=== PATIENT | male | born 1975 | race American Indian/Alaskan Native ===

== ENCOUNTER 2019-07-14 10:48 | Emergency (ER) | payer OTHER ==
[2019-07-14 10:56] VITALS: BP 129/80
--- NOTE | 2019-07-14 13:37 | Emergency Department Report ---
ED General Adult HPI - General Chief complaint: Abdominal Pain Stated complaint: GI PAIN/LEG SPASM Time Seen by Provider: 07/14/19 12:04 Source: patient Mode of arrival: Ambulatory Limitations: No Limitations - History of Present Illness Initial comments: This is a 43-year-old male who presents to the ED complaining of left thigh muscle spasm that is been worsening past 2 days. Patient states he has a history of internal hemorrhoids and had it removed 3 years ago. Patient states for some time now for about 2 days he has been having some blood from his stool and when he wipes. Patient states he has not noted any external hemorrhoids. Patient states that since his surgery he has had have a bowel movement in awkward position which is causing him to have 5 muscle spasms. Patient states he was going to work today when he got a spasm. Patient states that last time he saw a GI doctor was in [place] where he used to reside. Patient had endoscopy and colonoscopy done a year ago. Patient is recently moved from [place] to the [facility]. - Related Data Previous Rx's Medication Instructions Recorded Last Taken Type tiZANidine [Zanaflex 4mg TAB] 4 mg PO BID #30 tablet 07/14/19 Unknown Rx Allergies Allergy/AdvReac Type Severity Reaction Status Date / Time Sulfa (Sulfonamide Allergy Unknown Verified 07/14/19 10:53 Antibiotics) ED Review of Systems ROS: Stated complaint: GI PAIN/LEG SPASM Other details as noted in HPI Comment: All other systems reviewed and negative ED Past Medical Hx - Past Medical History Previous Medical History?: No - Surgical History Past Surgical History?: Yes Additional Surgical History: rectal surgery - Social History Smoking Status: Current Every Day Smoker Substance Use Type: Alcohol - Medications Home Medications: Home Medications Medication Instructions Recorded Confirmed Last Taken Type tiZANidine [Zanaflex 4mg TAB] 4 mg PO BID #30 tablet 07/14/19 Unknown Rx ED Physical Exam - General Limitations: No Limitations General appearance: alert, in no apparent distress - Head Head exam: Present: atraumatic, normocephalic - Eye Eye exam: Present: normal appearance - ENT ENT exam: Present: mucous membranes moist - Neck Neck exam: Present: normal inspection - Respiratory Respiratory exam: Present: normal lung sounds bilaterally. Absent: respiratory distress - Cardiovascular Cardiovascular Exam: Present: regular rate, normal rhythm. Absent: systolic murmur, diastolic murmur, rubs, gallop - GI/Abdominal GI/Abdominal exam: Present: soft, normal bowel sounds - Rectal Rectal exam: Present: normal inspection, normal rectal tone, heme (-) stool. Absent: fecal impaction, hemorrhoids - Extremities Exam Extremities exam: Present: normal inspection - Back Exam Back exam: Present: normal inspection - Neurological Exam Neurological exam: Present: alert, oriented X3 - Psychiatric Psychiatric exam: Present: normal affect, normal mood - Skin Skin exam: Present: warm, dry, intact, normal color. Absent: rash ED Course Vital Signs 07/14/19 10:55 Temperature 98.2 F Pulse Rate 84 Respiratory 18 Rate Blood Pressure 129/80 O2 Sat by Pulse 97 Oximetry ED Medical Decision Making - Medical Decision Making This 44-year-old male who presented for thigh muscle spasm and rectal pain with bowel movement I discussed with patient that he will need to follow-up with their sporting goods sales associate for continued management of his GI surgery. I discussed with patient In the meantime he can follow-up with primary care physician for management of his spasms. Patient had no acute distress in the ED he was sitting quietly in the ED room. Patient states he understand instructions. Referrals given for gastro. Vital signs are normal. Discussed with patient if any worsening symptoms or new onset of symptoms return to ED immediately. Critical care attestation.: If time is entered above; I have spent that time in minutes in the direct care of this critically ill patient, excluding procedure time. ED Disposition Clinical Impression: Hx of hemorrhoids, Blood in stool, Muscle spasm of left lower extremity Disposition: DC-01 TO HOME OR SELFCARE Is pt being admited?: No Does the pt Need Aspirin: No Condition: Stable Instructions: Hemorrhoids (ED), Rectal Bleeding (ED), Trigger Point Pain (ED) Additional Instructions: Make sure to follow up with the primary care physician as discussed. Take all your medications as you've been prescribed. If you have any worsening symptoms or develop new symptoms please return to ED immediately. Prescriptions: tiZANidine [Zanaflex 4mg TAB] 4 mg PO BID #30 tablet Referrals: PRIMARY CARE, [Primary Care Provider] - 3-5 Days [facility] [Provider Group] - 3-5 Days [facility] [Provider Group] - 3-5 Days Forms: Work/School Release Form(ED) Time of Disposition: 13:41
== END 2019-07-14 13:49 | disposition home or self-care (01) ==
LOC: ED 10:48
DX: R10.2 Pelvic and perineal pain (principal); K92.1 Melena; M62.838 Other muscle spasm
CPT/HCPCS: 99282

== ENCOUNTER 2020-08-14 01:11 | Emergency (ER) | payer OTHER ==
[2020-08-14] MEDS ORDERED: IBUPROFEN 600 MG TAB PO ONE (01:51)
--- NOTE | 2020-08-14 02:00 | Event Note ---
ED Screening Note Date of service: 08/14/20 Time: 01:51 ED Screening Note: 44-year-old -Mexican male presents to the emergency room for right side testicular pain swelling and right groin pain for day #2. Patient states he had a history of hernia repair he feels it was on the right side with mesh. Patient does admit that his urine is cloudy. Denies any penis discharge. This initial assessment/diagnostic orders/clinical plan/treatment(s) is/are subject to change based on patients health status, clinical progression and re- assessment by fellow clinical providers in the ED. Further treatment and workup at subsequent clinical providers discretion. Patient/guardian urged not to elope from the ED as their condition may be serious if not clinically assessed and managed. Initial orders include: CBC CMP urinalysis ultrasound testicular and Doppler.
[2020-08-14 02:59] LABS: Bacteria,Urine 1+ /HPF (Negative); Bilirubin,Urine SM (Negative); Blood,Urine NEG (Negative); Color,Urine Amber (Yellow); Mucus,Urine FEW /HPF; Protein,Urine <15 mg/dL mg/dL (Negative)
[2020-08-14 03:01] LABS: Alanine Aminotransferase 39 units/L (7-56); Albumin 4.1 g/dL (3.9-5); BUN/Creatinine Ratio 11; Blood Urea Nitrogen 12 mg/dL (9-20); Calcium 9.5 mg/dL (8.4-10.2); Hemolysis Index 3
[2020-08-14 03:10] LABS: Basophils % (Auto) 0.5 % (0.0-1.8); Eosinophils % (Auto) 0.4 % (0.0-4.3); Hematocrit 41.2 % (35.5-45.6); Hemoglobin 14.1 gm/dl (11.8-15.2); Lymphocytes # (Auto) 2.3 K/mm3 (1.2-5.4); Lymphocytes % (Auto) 24.8 % (13.4-35.0); Mean Corpuscular HGB Conc 34 % (32-34); Mean Corpuscular Volume 95 fl (84-94); Monocytes # (Auto) 0.7 K/mm3 (0.0-0.8); Monocytes % (Auto) 7.2 % (0.0-7.3); Platelet Count 261 K/mm3 (140-440); Red Blood Count 4.35 M/mm3 (3.65-5.03); Red Cell Distribution Width 13.1 % (13.2-15.2)
[2020-08-14] MEDS ORDERED: ACETAMINOPHEN 500 MG TAB PO ONE (03:26)
[2020-08-14 03:29] LABS: Ictotest,Urine Negative (Negative)
--- NOTE | 2020-08-14 03:30 | Emergency Department Report ---
HPI - General Chief Complaint: Abdominal Pain Time Seen by Provider: 08/14/20 02:17 - HPI HPI: Room 22 The patient is a 44-year-old male present with a chief complaint of right testicle pain. Patient states for the past 2 days he has had pain in the right testicle lower back right groin. Patient states the pain is sharp and stabbing and constant in nature. Patient denies any preceding trauma. Patient admits to discomfort with urination. Patient admits to fever. Patient denies nausea or vomiting. Patient states he has noticed swelling of the right testicle for the past 2 days. Patient currently gives his pain a score of 7/10. The patient drove himself to the emergency department and there are no visitors present ED Past Medical Hx - Past Medical History Previous Medical History?: No - Surgical History Past Surgical History?: Yes Additional Surgical History: rectal surgery, herniorrhaphy - Family History Family history: no significant - Social History Smoking Status: Current Some Day Smoker (Occasional) Substance Use Type: None (Denies illicit drug use), Alcohol (Occasional) - Medications Home Medications: Home Medications Medication Instructions Recorded Confirmed Last Taken Type tiZANidine [Zanaflex 4mg TAB] 4 mg PO BID #30 tablet 07/14/19 Unknown Rx HYDROcodone/APAP 5-325 [[place] 1 - 2 each PO Q6HR PRN #14 tablet 08/14/20 Unknown Rx 5/325] Ibuprofen [Motrin 800 MG tab] 800 mg PO Q8HR PRN #20 tablet 08/14/20 Unknown Rx levoFLOXacin [Levaquin TAB] 500 mg PO QDAY #10 tablet 08/14/20 Unknown Rx ED Review of Systems ROS: Stated complaint: PAIN RT TESTICLE/BACK/STOMACH Other details as noted in HPI Constitutional: fever Eyes: denies: eye pain ENT: denies: throat pain Respiratory: no symptoms reported Cardiovascular: denies: chest pain Endocrine: no symptoms reported Gastrointestinal: abdominal pain. denies: nausea, vomiting Genitourinary: dysuria Musculoskeletal: back pain Neurological: denies: headache Physical Exam - Physical Exam Vital Signs: Vital Signs 08/14/20 01:22 Temperature 101.7 F H Pulse Rate 95 H Respiratory 18 Rate Blood Pressure 111/67 O2 Sat by Pulse 97 Oximetry Physical Exam: GENERAL: The patient is well-developed well-nourished male lying on stretcher appearing to be in mild discomfort. [] HEENT: Normocephalic. Atraumatic. Extraocular motions are intact. Patient has moist mucous membranes. NECK: Supple. Trachea midline CHEST/LUNGS: Clear to auscultation. There is no respiratory distress noted. HEART/CARDIOVASCULAR: Regular. There is no tachycardia. There is no gallop rub or murmur. ABDOMEN: Abdomen is soft, with tenderness to palpation in the right upper quadrant, right lower quadrant and suprapubic region. Patient has normal bowel sounds. There is no abdominal distention. SKIN: There is no rash. There is no edema. There is no diaphoresis. NEURO: The patient is awake, alert, and oriented. The patient is cooperative. The patient has no focal neurologic deficits. The patient has normal speech MUSCULOSKELETAL: There is right CVA tenderness. There is no evidence of acute injury. GENITOURINARY: Right testicle slightly swollen. Very tender to palpation. Positive cremasteric reflex present bilaterally ED Course Vital Signs 08/14/20 01:22 Temperature 101.7 F H Pulse Rate 95 H Respiratory 18 Rate Blood Pressure 111/67 O2 Sat by Pulse 97 Oximetry ED Medical Decision Making - Lab Data Result diagrams: 08/14/20 02:03 08/14/20 02:03 Laboratory Tests 08/14/20 08/14/20 08/14/20 02:03 02:03 Unknown WBC 9.2 RBC 4.35 Hgb 14.1 Hct 41.2 MCV 95 H MCH 33 H MCHC 34 RDW 13.1 L Plt Count 261 Lymph % (Auto) 24.8 [place] % (Auto) 7.2 Eos % (Auto) 0.4 Baso % (Auto) 0.5 Lymph # (Auto) 2.3 [place] # (Auto) 0.7 Eos # (Auto) 0.0 Baso # (Auto) 0.0 Seg Neutrophils % 67.1 Seg Neutrophils # 6.2 Sodium 138 Potassium 3.9 Chloride 97.6 L Carbon Dioxide 27 Anion Gap 17 BUN 12 Creatinine 1.1 Estimated GFR > 60 BUN/Creatinine Ratio 11 Glucose 119 H Calcium 9.5 Total Bilirubin 0.70 AST 33 ALT 39 Alkaline Phosphatase 97 Total Creatine Kinase 545 H Total Protein 7.4 Albumin 4.1 Albumin/Globulin Ratio 1.2 Urine Color [place] Urine Turbidity Clear Urine pH 6.0 Ur Specific [place] 1.027 Urine Protein <15 mg/dl Urine Glucose (UA) Neg Urine Ketones Neg Urine Blood Neg Urine Nitrite Neg Urine Bilirubin Sm Urine Ictotest Negative Urine Urobilinogen 4.0 Ur Leukocyte Esterase Tr Urine WBC (Auto) 3.0 Urine RBC (Auto) 8.0 U Epithel Cells (Auto) 1.0 Urine Bacteria (Auto) 1+ Urine Mucus Few - Radiology Data Radiology results: report reviewed (Testicular ultrasound, extremity ultrasound, CT abdomen pelvis), image reviewed (Testicular ultrasound, extremity ultrasound, CT abdomen pelvis) [address] [address] Ult rasound Report Signed Patient: ANITRA EDWARDS MR# : [id number] : 1975 Acct:[id number] Age/Sex: 44 / M ADM Date: 08/14/20 Loc: ED Attending Dr: Ordering Physician: ABI COLLINS Date of Service: 08/14/20 Procedure(s): US testicular doppler comp Accession Number(s): [id number] cc: ABI COLLINS SCROTAL ULTRASOUND WITH DOPPLER HISTORY: Right testicular swelling tenderness COMPARISON: None. TECHNIQUE: Grayscale, color and spectral Doppler images were obtained of the scrotum. FINDINGS: RIGHT: Right testicle: No significant abnormality. No mass. Right testicular size: 3.2 x 2.4 x 2.9 cm. Right epididymis: No significant abnormality. LEFT: Left testicle: No significant abnormality. No mass. Left testicular size: 2.7 x 2.5 x 2.4 cm. Left epididymis: No significant abnormality. Additional findings: None. IMPRESSION: 1. No significant abnormality. Signer Name: Hortencia Scherer MD Signed: 08/14/2020 3:46 AM Workstation Name: [id number] Transcribed By: [facility] Dictated By: Hortencia Scherer MD Electronically Authenticated By: Hortencia Scherer MD Signed Date/Time: 08/14/20345 DD/ 2 TD/TT: Print [address] [address] Ultrasound Report Signed Patient: ANITRA EDWARDS MR# : [id number] : 1975 Acct:[id number] Age/Sex: 44 / M ADM Date: 08/14/20 Loc: ED Attending Dr: Ordering Physician: ABI COLLINS Date of Service: 08/14/20 Procedure(s): US extremity nonvascular RT Accession Number(s): [id number] cc: ABI COLLINS US extremity nonvascular RT INDICATION / CLINICAL INFORMATION: Inguinal tenderness. COMPARISON: None available. FINDINGS: Targeted ultrasound of the area of focal pain in the right groin is unremarkable. There is an incidental morphologically normal lymph node. IMPRESSION: 1. No significant sonographic abnormality at the site of focal pain in the right groin. Signer Name: Hortencia Scherer MD Signed: 08/14/2020 3:47 AM Workstation Name: [id number] Transcribed By: [facility] Dictated By: Hortencia Scherer MD Electronically Authenticated By: Hortencia Scherer MD Signed Date/Time: 08/14/20346 DD/ 5 TD/TT: Print Cancel [facility] [address] [place] [address] Cat Scan Report Signed Patient: ANITRA EDWARDS MR# : [id number] : 1975 Acct:[id number] Age/Sex: 44 / M ADM Date: 08/14/20 Loc: ED Attending Dr: Ordering Physician: WHIT LINDSEY MD Date of Service: 08/14/20 Procedure(s): CT abdomen pelvis w con Accession Number(s): [id number] cc: WHIT LINDSEY MD CT ABDOMEN AND PELVIS WITH CONTRAST INDICATION / CLINICAL INFORMATION: RLQ, right flank, right groin pain. TECHNIQUE: Axial CT images were obtained through the abdomen and pelvis after 100 mL Omnipaque [address] scans at this location are performed using CT dose reduction for ALARA by means of automated exposure control. COMPARISON: None available. FINDINGS: LOWER CHEST: No significant abnormality. LIVER: No significant abnormality. BILIARY SY STEM: No significant abnormality. PANCREAS: No significant abnormality. SPLEEN: No significant abnormality. ADRENALS: No significant abnormality. KIDNEYS and URETERS: No significant abnormality. STOMACH / BOWEL: No significant abnormality. The appendix is normal. PERITONEUM: No free fluid. No free air. No fluid collection. LYMPH NODES: No significant adenopathy. VASCULAR STRUCTURES: No significant abnormality. URINARY BLADDER: No significant abnormality. REPRODUCTIVE ORGANS: No significant abnormality. ADDITIONAL FINDINGS: Evidence of prior right inguinal hernia repair without CT evidence of complication. SKELETAL SYSTEM: No significant abnormality. IMPRESSION: 1. No acute process identified within the abdomen or pelvis to account for right lower quadrant pain. 2. Prior right inguinal hernia repair without CT evidence of complication. Signer Name: Hortencia Scherer MD Signed: 08/14/2020 4:23 AM Workstation Name: [id number] Transcribed By: [facility] Dictated By: Hortencia Scherer MD Electronically A uthenticated By: Hortencia Scherer MD Signed Date/Time: 08/14/20422 DD/ 8 TD/TT: Print Cancel - Differential Diagnosis Epididymitis, pyelonephritis, appendicitis, renal colic, Critical care attestation.: If time is entered above; I have spent that time in minutes in the direct care of this critically ill patient, excluding procedure time. ED Disposition Clinical Impression: Right flank pain, Bacteriuria, Fever, Dysuria Disposition: TO HOME OR SELFCARE Is pt being admited?: No Does the pt Need Aspirin: No Condition: Stable Instructions: Abdominal Pain, Adult, [id number], Dysuria, Flank Pain, Adult, [id number], Fever, Adult, [id number] Additional Instructions: Return to the emergency department should you develop worsening symptoms, inability to tolerate food or liquids, high fever or any other concerns Prescriptions: levoFLOXacin [Levaquin TAB] 500 mg PO QDAY #10 tablet Ibuprofen [Motrin 800 MG tab] 800 mg PO Q8HR PRN #20 tablet PRN Reason: Pain, Moderate (4-6) HYDROcodone/APAP 5-325 [[place] 5/325] 1 - 2 each PO Q6HR PRN #14 tablet PRN Reason: Pain Referrals: PRIMARY CARE, [Primary Care Provider] - 3-5 Days BELLA LIANG MD [Staff Physician] - 3-5 Days (Dr. Liang is a urologist. Please follow-up with him for further evaluation) Time of Disposition: 04:40
--- NOTE | 2020-08-14 03:50 | Ultrasound Report ---
SCROTAL ULTRASOUND WITH DOPPLER HISTORY: Right testicular swelling tenderness COMPARISON: None. TECHNIQUE: Grayscale, color and spectral Doppler images were obtained of the scrotum. FINDINGS: RIGHT: Right testicle: No significant abnormality. No mass. Right testicular size: 3.2 x 2.4 x 2.9 cm. Right epididymis: No significant abnormality. LEFT: Left testicle: No significant abnormality. No mass. Left testicular size: 2.7 x 2.5 x 2.4 cm. Left epididymis: No significant abnormality. Additional findings: None. IMPRESSION: 1. No significant abnormality. Signer Name: Hortencia Scherer MD Signed: 08/14/2020 3:46 AM Workstation Name: [id number]
--- NOTE | 2020-08-14 03:52 | Ultrasound Report ---
US extremity nonvascular RT INDICATION / CLINICAL INFORMATION: Inguinal tenderness. COMPARISON: None available. FINDINGS: Targeted ultrasound of the area of focal pain in the right groin is unremarkable. There is an inciden ashish morphologically normal lymph node. IMPRESSION: 1. No significant sonographic abnormality at the site of focal pain in the right groin. Signer Name: Hortencia Scherer MD Signed: 08/14/2020 3:47 AM Workstation Name: [email or web address]
--- NOTE | 2020-08-14 04:28 | Cat Scan Report ---
CT ABDOMEN AND PELVIS WITH CONTRAST INDICATION / CLINICAL INFORMATION: RLQ, right flank, right groin pain. TECHNIQUE: Axial CT images were obtained through the abdomen and pelvis after 100 mL Omnipaque [address] scans at this location are performed using CT dose reduction for ALARA by means of automated exposure control. COMPARISON: None available. FINDINGS: LOWER CHEST: No significant abnormality. LIVER: No significant abnormality. BILIARY SYSTEM: No significant abnormality. PANCREAS: No significant abnormality. SPLEEN: No significant abnormality. ADRENALS: No significant abnormality. KIDNEYS and URETERS: No significant abnormality. STOMACH / BOWEL: No significant abnormality. The appendix is normal. PERITONEUM: No free fluid. No free air. No fluid collection. LYMPH NODES: No significant adenopathy. VASCULAR STRUCTURES: No significant abnormality. URINARY BLADDER: No significant abnormality. REPRODUCTIVE ORGANS: No significant abnormality. ADDITIONAL FINDINGS: Evidence of prior right inguinal hernia repair without CT evidence of complicati on. SKELETAL SYSTEM: No significant abnormality. IMPRESSION: 1. No acute process identified within the abdomen or pelvis to account for right lower quadrant pain. 2. Prior right inguinal hernia repair without CT evidence of complication. Signer Name: Hortencia Scherer MD Signed: 08/14/2020 4:23 AM Workstation Name: [email or web address]
[2020-08-14] MEDS ORDERED: cefTRIAXone/NS 1 GM/50 ML 1 GM/50 ML BAG IV ONE (04:35)
[2020-08-14] MEDS ORDERED: AZITHROMYCIN 1 GM ORAL PWDR PACKET PO ONE (04:37)
[2020-08-14 05:59] VITALS: BP 165/97
== END 2020-08-14 05:42 | disposition home or self-care (01) ==
LOC: ED 01:11
DX: R82.71 Bacteriuria (principal); R30.0 Dysuria; R50.9 Fever, unspecified; R10.9 Unspecified abdominal pain; F17.200 Nicotine dependence, unspecified, uncomplicated; Z98.890 Other specified postprocedural states; Z79.1 Long term (current) use of non-steroidal anti-inflammatories (NSAID); Z79.899 Other long term (current) drug therapy; Z88.2 Allergy status to sulfonamides
CPT/HCPCS: 36415; 74177; 76881; 80053; 81001; 82550; 85025; 93975; 96365; 99284; J0696; Q9967

== ENCOUNTER 2021-05-08 21:11 | Emergency (ER) | payer OTHER ==
[2021-05-09 02:42] VITALS: BP 128/97
[2021-05-09] MEDS ORDERED: IBUPROFEN 800 MG TAB PO ONE (02:44)
[2021-05-09] MEDS ORDERED: ACETAMINOPHEN 325 MG TAB PO ONE (06:33)
--- NOTE | 2021-05-09 06:35 | Emergency Department Report ---
ED Lower Extremity HPI - General Chief Complaint: Extremity Injury, Lower Stated Complaint: FOOT PAIN Time Seen by Provider: 05/09/21 05:05 Source: patient, RN notes reviewed Mode of arrival: Ambulatory Limitations: Physical Limitation - History of Present Illness Initial Comments: The patient was evaluated in the emergency department for symptoms described in the history of present illness. He/she was evaluated in the context of the global COVID-19 pandemic, which necessitated consideration that the patient might be at risk for infection with the virus that causes COVID-19. Institutional protocols and algorithms that pertain to the evaluation of patients at risk for COVID-19 are in a state of rapid change based on information released by regulatory bodies including the CDC and federal and state organizations. These policies and algorithms were followed during the patient's care in the emergency department. Please note that these policies, procedures and recommendations changed on a rapid basis. The patient is a 45-year-old gentleman, who works as an [employer] person, presenting to the ER with a complaint of nontraumatic right medial ankle pain, right posterior Achilles tendon pain and right medial/plantar foot pain. No additional injuries or complaints. Pain is sharp and throbbing, increases with palpation, and decreases with rest. No additional injuries or complaints. Patient reports that these Pain started happening after he was required to wear tight fitting boots at work. MD Complaint: ankle injury, foot injury, other -: Gradual, days(s) Injury: Ankle: Right, Foot: Right Type of Injury: unknown Place: work Severity: moderate Improves With: rest Worsens With: movement, palpation Associated Symptoms: swelling, able to partially bear weight. denies: numbness, tingling - Related Data Previous Rx's Medication Instructions Recorded Last Taken Type Acetaminophen [Non-Aspirin Extra 650 mg PO Q6HR PRN #30 tablet 05/09/21 Unknown Rx Strength] Ibuprofen [Motrin] 600 mg PO Q8H PRN #30 tablet 05/09/21 Unknown Rx Allergies Allergy/AdvReac Type Severity Reaction Status Date / Time Sulfa (Sulfonamide Allergy Unknown Verified 07/14/19 10:53 Antibiotics) ED Review of Systems ROS: Stated complaint: FOOT PAIN Other details as noted in HPI Constitutional: denies: fever Eyes: denies: eye discharge ENT: denies: epistaxis Respiratory: denies: cough Cardiovascular: denies: chest pain Gastrointestinal: denies: abdominal pain Musculoskeletal: joint swelling, arthralgia, myalgia. denies: back pain Skin: denies: lesions Neurological: denies: weakness ED Past Medical Hx - Surgical History Additional Surgical History: rectal surgery, herniorrhaphy - Social History Smoking Status: Current Some Day Smoker (Occasional) Substance Use Type: None (Denies illicit drug use), Alcohol (Occasional) - Medications Home Medications: Home Medications Medication Instructions Recorded Confirmed Last Taken Type Acetaminophen [Non-Aspirin Extra 650 mg PO Q6HR PRN #30 tablet 05/09/21 Unknown Rx Strength] Ibuprofen [Motrin] 600 mg PO Q8H PRN #30 tablet 05/09/21 Unknown Rx ED Physical Exam - General Limitations: Physical Limitation General appearance: alert, in no apparent distress - Head Head exam: Present: atraumatic, normocephalic - Eye Eye exam: Present: normal appearance, EOMI. Absent: nystagmus - ENT ENT exam: Present: normal exam, normal orophraynx, mucous membranes moist, normal external ear exam - Neck Neck exam: Present: normal inspection, full ROM. Absent: tenderness, mening ismus - Respiratory Respiratory exam: Present: normal lung sounds bilaterally. Absent: respiratory distress, wheezes, rales, rhonchi, stridor, decreased breath sounds - Cardiovascular Cardiovascular Exam: Present: regular rate, normal rhythm, normal heart sounds. Absent: bradycardia, tachycardia, irregular rhythm, systolic murmur, diastolic murmur, rubs, gallop - GI/Abdominal GI/Abdominal exam: Present: soft. Absent: distended, tenderness, guarding, rebound, rigid, pulsatile mass - Rectal Rectal exam: Present: deferred - Extremities Exam Extremities exam: Present: full ROM, tenderness (Right medial ankle tenderness.), normal capillary refill, other (2+ pulses noted in the bilateral upper and lower extremities. There is no long bony tenderness. The muscular compartments are soft. Full range of motion bilateral upper extremities and left lower extremity. Full range of motion right lower extremity). Absent: normal inspection (There is right medial ankle ecchymosis, and swelling. There is point tenderness to the right medial ankle. The Hess test is functional. The muscular compartments are soft. There is no redness, pus or streaking.), pedal edema, calf tenderness - Back Exam Back exam: Present: normal inspection. Absent: tenderness, CVA tenderness (R), CVA tenderness (L), paraspinal tenderness, vertebral tenderness - Neurological Exam Neurological exam: Present: alert, oriented X3, other (No facial droop. Tongue midline. Extraocular movements intact bilaterally. Facial sensation intact to light touch in V1, V2, V3 distribution bilaterally. 5 and a 5 strength in 4 extremities. Sensation intact to light touch in 4 extremities.). Absent: motor sensory deficit - Psychiatric Psychiatric exam: Present: normal affect, normal mood - Skin Skin exam: Present: warm, dry, intact, normal color. Absent: rash ED Course Vital Signs 05/09/21 05/09/21 05/09/21 02:41 02:49 06:48 Temperature 98.5 F Pulse Rate 64 Respiratory 20 20 16 Rate Blood Pressure 128/97 [Right] O2 Sat by Pulse 97 Oximetry ED Lower Extremity MDM - Lab Data Vital Signs 05/09/21 05/09/21 05/09/21 02:41 02:49 06:48 Temperature 98.5 F Pulse Rate 64 Respiratory 20 20 16 Rate Blood Pressure 128/97 [Right] O2 Sat by Pulse 97 Oximetry - Radiology Data Radiology results: pending, report reviewed, image reviewed Right foot 3 views INDICATION: Foot pain FINDINGS: MTP joints and IP joints appear normal. Midfoot alignment appears normal. Calcaneus is intact. IMPRESSION: No acute findings. Signer Name: Toney Myers MD Signed: 05/09/2021 5:53 AM Workstation Name: [id number] Right ankle 3 views INDICATION: Medial ankle pain FINDINGS: Diffuse swelling within the medial ankle. Distal tibiofibular intact. No acute fracture is definitely seen. Signer Name: Toney Myers MD Signed: 05/09/2021 5:54 AM Workstation Name: [id number] - Medical Decision Making Differential diagnosis, including but not limited to: Sprain, strain, fracture, dislocation, overuse injury, tendinitis Assessment and plan:45-year-old gentleman, who was afebrile, with reassuring vital signs, presenting with isolated right medial ankle swelling, pain and tenderness, with Achilles tendon pain as well, without redness, pus, streaking, penetrating trauma or IV drug use. Patient reports the symptoms are associated with wearing tight boots for work, and he is frequently weightbearing. His examination and history are not suggestive of infectious pathology at this time. He is able to bear weight, although limited, x-rays show no fracture or dislocation, he is wearing slides/flip-flops at this time. Rest, ice, compression elevation, weightbearing as tolerated, Aircast, Tylenol, Motrin, supportive footwear, follow-up with outpatient podiatry, orthopedics. Discussed this with the patient. He articulated understanding. All questions answered. Return precautions reviewed Critical care attestation.: If time is entered above; I have spent that time in minutes in the direct care of this critically ill patient, excluding procedure time. ED Disposition Clinical Impression: Right ankle pain, Right foot pain Disposition: HOME / SELF CARE / HOMELESS Is pt being admited?: No Does the pt Need Aspirin: No Condition: Good Instructions: Ankle Pain, RICE Therapy for Routine Care of Injuries Additional Instructions: Patient should alternate ice packs and heat packs as needed for physical pain. Weightbearing as tolerated, keep the splint on the right ankle, use the cane as directed, do not wear slides or flip-flops. Patient should wear supportive footwear, such as athletic shoes, cross trainers or basketball shoes. Recommend that patient avoid wearing tight or painful boots at this time. Recommend follow-up with an orthopedist, residential installer or primary care doctor within the next week. Local primary care, orthopedics and podiatry have been listed in this paperwork the patient may contact to follow-up with. Patient may take the pain medication as needed and prescribed, and should avoid heavy lifting at work. The patient may return to work and work in a light-duty capacity or clerical capacity, but should not be standing, do heavy lifting, or any strenuous physical activity until cleared to do so by her primary care doctor, orthopedist or residential installer. Please return to the emergency room right away with new pain, worsened pain, mi gration of pain, projectile vomiting, change in mental status, confusion, inability tolerate liquid feeds, new, worsened or different symptoms not present on the initial emergency room evaluation Prescriptions: Ibuprofen [Motrin] 600 mg PO Q8H PRN #30 tablet PRN Reason: Pain Acetaminophen [Non-Aspirin Extra Strength] 650 mg PO Q6HR PRN #30 tablet PRN Reason: Pain , Severe (7-10) Referrals: [facility] [Provider Group] - 3-5 Days AVANI GONZALES MD [Staff Physician] - 3-5 Days YUKI LAMA DPM [Staff Physician] - 3-5 Days Forms: Work/School Release Form(ED)
--- NOTE | 2021-05-09 06:58 | XRay Report ---
Right ankle 3 views INDICATION: Medial ankle pain FINDINGS: Diffuse swelling within the medial ankle. Distal tibiofibular intact. No acute fracture is definitely seen. Signer Name: Toney Myers MD Signed: 05/09/2021 6:54 AM Workstation Name: [id number]
--- NOTE | 2021-05-09 06:58 | XRay Report ---
Right foot 3 views INDICATION: Foot pain FINDINGS: MTP joints and IP joints appear normal. Midfoot alignment appears normal. Calcaneus is inta ct. IMPRESSION: No acute findings. Signer Name: Toney Myers MD Signed: 05/09/2021 6:53 AM Workstation Name: [id number]
== END 2021-05-09 08:56 | disposition home or self-care (01) ==
LOC: ED 21:11
DX: M25.571 Pain in right ankle and joints of right foot (principal); M79.671 Pain in right foot; F17.200 Nicotine dependence, unspecified, uncomplicated; Z88.2 Allergy status to sulfonamides
CPT/HCPCS: 99283